=== PATIENT | female | born 1980 ===

== ENCOUNTER 2017-12-20 23:34 | Inpatient (IN) | payer MEDICAID ==
[2017-12-20 23:44] VITALS: O2SAT 98
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
[2017-12-21 04:18] LABS: BASO % 0.6 % (0.0-2.0); EOS # 0.1 K/uL (0.0-0.7); EOS % 1.1 % (0.0-4.0); LYMPH # 1.9 K/uL (1.0-4.3); LYMPH % 27.5 % (20.0-40.0); MEAN CELL VOLUME 92.4 fl (81.0-99.0); MEAN CORPUSCULAR HEMOGLOBIN 32.4 pg (27.0-31.0); MEAN CORPUSCULAR HGB CONC 35.1 g/dL (33.0-37.0); MEAN PLATELET VOLUME 6.5 fl (7.2-11.7); MONO # 0.5 K/uL (0.0-0.8); MONO % 6.6 % (0.0-10.0); NEUT # 4.5 K/uL (1.8-7.0); NEUT % 64.2 % (50.0-75.0); NRBC % 0.1 % (0.0-0.0); RBC 4.01 Mil/uL (3.80-5.20); RED CELL DISTRIBUTION WIDTH 13.7 % (11.5-14.5); WHITE BLOOD COUNT 7.1 K/uL (4.8-10.8)
[2017-12-21 04:28] LABS: ALB/GLOB RATIO 1.2 (1.0-2.1); ALBUMIN 3.9 g/dL (3.5-5.0); ALT/SGPT 23 U/L (9-52); AST/SGOT 27 U/L (14-36); BLOOD UREA NITROGEN 12 mg/dl (7-17); GFR AFRICAN-AMERICAN > 60; GFR NON-AFRICAN AMERICAN > 60
[2017-12-21] MEDS ORDERED: Magnesium Hydroxide Susp 30 ml UD PO PRN (04:40)
[2017-12-21] MEDS ORDERED: DiphenhydrAMINE 50 mg/ml Inj IM PRN (04:40)
--- NOTE | 2017-12-21 04:55 | PCM.BM ---
<Caryl Remy - Last Filed: 12/21/17 04:54> Treatment Plan Problems - Problems identified on initial assessmt Feelings of Worthlessness Date Initiated: 12/21/17 Time Initiated: 04:54 Assessment reference: NA Status: Active Treatment assets and liabiliti Patient Assests: ADL independent, negotiates basic needs Patient Liabilities: poor support system, relationship conflicts - Milieu Protocol Maintain good personal hygiene: daily Remind patient to perform daily oral care , daily Assist patient to perform ADL's, every shift Encourage regular showers Conduct patient checks and document Observation sheet: Q15 minutes Maintain personal safety: every shift Educate patient to report safety concerns to staff, every shift Monitor environment for contraband/sharps Medication safety: Monitor for expected outcome, potential side effects: every shift, Assess barriers to learning: every shift, Assess readiness for medication education: every shift <Karen Ruvalcaba - Last Filed: 12/23/17 16:24> Treatment assets and liabiliti Patient Assests: adapts well, cooperative, educated, resourceful, self-reliant, ADL independent, physically healthy, good support system, negotiates basic needs , cognitively intact Patient Liabilities: relationship conflicts Family Contact Family involvement: Family/SO is involved Family contact: Patient agrees to contact, Telephone contact initiated by staff Family contact name: Rosanna (mother) Family contacted how many times per week?: 2 Family contact comment: Senior Cost Estimator obtained consent on 12/23 and will contact patients family on 12/24 to discuss precursors to pts admission, progress on 3NP and aftercare. - Goals for Treatment Patient goals for treatment: Patient to continue stabilization on 3NP through medication management and group/supportive therapy. Patient to be encouraged to attend groups regularly to promote self-awareness, compliance, and improve insight, coping skills and self-esteem. Patient to be provided with referral for appropriate level of aftercare to reduce risk of future hospitalizations and ensure safety in the community. Discharge/Continuing Care - Education Needs Education Needs: Family Medication, Family Diagnosis/Disease Process, Family Coping Skills, Family Community resources, Family Aftercare Safety Plan, Patient Medication, Patient Diagnosis/Disease Process, Patient Coping Skills, Patient Anger Management skills, Patient Community resources, Patient Aftercare Safety Plan - Discharge Discharge Criteria: Tolerates medication w/o severe side effects, Free of Suicidal thoughts, Free of agitation, Normal sleep pattern, Ability to care for self, Reduction of target symptoms Discharge to:: Home, With Family, Other (OPS VS. PHP) - Treatment Team Participation Patient/Family/SO Statement: 12/23/17 16:27 Pt. attended tx team this morning. Pt. required significant engagement to participate in discussion regarding tx. Pt. AOX4 with flat affect and poor eye contact. Pt. tearful through-out interaction with repairer typewriter. Pt. somewhat untidy with fair ADLs. Thoughts clear and connected. Speech: low/soft. Pt. remains depressed, anxious and socially withdrawn. Insight limited. Coping skills/ Judgment impaired. Pt. perseverating on husbands whereabouts. Pt. socially withdrawn and isolative on 3NP. Validation and emotional support provided. Discussed with Family/SO: No Was Patient/Family/SO present at Treatment Team Meeting: Yes <Wilmer Luu - Last Filed: 12/24/17 18:05> - Diagnosis (1) Depression Status: Acute Interventions: psychotherapy pharmacotherapy 12/24/17 18:05
[2017-12-21 04:56] LABS: BARBITURATES, UR NEGATIVE (NEGATIVE); BENZODIAZEPINES, UR NEGATIVE (NEGATIVE); OPIATES, UR NEGATIVE (NEGATIVE); PHENCYCLIDINE, UR NEGATIVE (NEGATIVE)
--- NOTE | 2017-12-21 08:31 | RAD ---
HISTORY: admit COMPARISON: No prior. FINDINGS: LUNGS: No active pulmonary disease. PLEURA: No significant pleural effusion identified, no pneumothorax apparent. CARDIOVASCULAR: Normal. OSSEOUS STRUCTURES: No significant abnormalities. VISUALIZED UPPER ABDOMEN: Normal. OTHER FINDINGS: None. IMPRESSION: No acute cardiopulmonary disease appreciated.
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
[2017-12-21] MEDS ORDERED: Potassium Chloride 20 mEq ER Tab PO ONE (13:45)
[2017-12-21] MEDS ORDERED: Albuterol HFA 90 mcg/actuation (8 g) IH PRN (15:56)
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
[2017-12-22 06:40] LABS: T4 8.44 ug/dl (5.5-11.0)
[2017-12-22 06:59] LABS: BLOOD UREA NITROGEN 10 mg/dl (7-17); CALCIUM 9.3 mg/dL (8.4-10.2); GFR AFRICAN-AMERICAN > 60; GFR NON-AFRICAN AMERICAN > 60
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
--- NOTE | 2017-12-23 14:34 | PCM.PYCHPN ---
Psychiatric Progress Note - Psychiatric Progress Note Patient seen today, length of contact: pt evaluated discussed with team chart reviewed Patient Chief Complaint: I am still worried about my I do not have any news about him Problems Identified/Issues Discussed: pt evaluated with treatment team, continues to present with sad mood and tearful affect, continues to worry about her discussed with pt importance of concentrating on her treatment and feeling better pt reported improved sleep and appetite with the increase in neurontin no reported side effects, encouraged pt to attend groups and to be less isolative pt denied any current active suicidal plans or intent on the unit, denied perceptual disturbances Medical Problems: pt denied any previous hospitalizations or treatment DSM 5 Symptoms Update: major depression recurrent severe without psychotic features Medication Change: No Medical Record Reviewed: Yes Mental Status Examination - Cognitive Function Orientation: Person, Place, Situation, Time Attention: Poor Concentration: Poor Association: WNL Fund of Knowledge: WNL Decription of patient's judgement and insights: partial insight , poor judgment - Mood Mood: Depressed, Anxious - Affect Affect: Depressed - Speech Speech: Soft - Formal Thought Process Formal Thought Process: Circumstantial - Suicidal Ideation Suicidal Ideation: No - Homicidal Ideation Homicidal Ideation: No Goal/Treatment Plan - Goal/Treatment Plan Need for Continued Stay: Severe depression anxiety, Discharge may exacerbated symptoms Progress Toward Problem(s) and Goals/Treatment Plan: continue remeron 15mg qhs neurontin 100mg tid encourage pt to attend groups and participate in unit activities CBT , group and supportive therapy Estimated Date of D/C: 12/30/17
--- NOTE | 2017-12-24 18:15 | PCM.PYCHPN ---
Psychiatric Progress Note - Psychiatric Progress Note Patient seen today, length of contact: pt evaluated discussed with team chart reviewed Patient Chief Complaint: I still have hard time to sleep Problems Identified/Issues Discussed: pt evaluated discussed with team, treatment plan reviewed with mother upon pt request and consent pt reported continues to feel depressed, very worried about her ,and anxious about the fact that he might be in a hospital contin ued to discuss with pt the need to concentrate on her treatment and recovery, pt continues to be terful, stating she is unable to move beyond this point and would do anything to save her marriage reported poor sleep with early insomnia, and continues to have anhedonia and lack of interest in any activity discussed starting seroquel qhs, discontinuing remeron and startin zoloft , encouraged pt to attend groups and to be less isolative pt denied any current active suicidal plans or intent on the unit, denied perceptual disturbances Medical Problems: pt denied any previous hospitalizations or treatment DSM 5 Symptoms Update: major depression recurrent severe Medication Change: Yes (d/c remeron) Medical Record Reviewed: Yes Mental Status Examination - Cognitive Function Orientation: Person, Place, Situation, Time Attention: Poor Concentration: Poor Association: WNL Fund of Knowledge: WN Decription of patient's judgement and insights: partial insight , poor judgment - Mood Mood: Depressed, Anxious - Affect Affect: Depressed - Speech Speech: Soft - Formal Thought Process Formal Thought Process: Circumstantial - Suicidal Ideation Suicidal Ideation: No - Homicidal Ideation Homicidal Ideation: No Goal/Treatment Plan - Goal/Treatment Plan Need for Continued Stay: Severe depression anxiety, Discharge may exacerbated symptoms Progress Toward Problem(s) and Goals/Treatment Plan: discontinue remeron , start seroquel 100mg qhs, zoloft 25mg daily neurontin 100mg tid encourage pt to attend groups and participate in unit activities CBT , group and supportive therapy Estimated Date of D/C: 12/30/17
--- NOTE | 2017-12-25 15:25 | PCM.PYCHPN ---
Psychiatric Progress Note - Psychiatric Progress Note Patient seen today, length of contact: pt evaluated discussed with team chart reviewed Patient Chief Complaint: I am used to helping every body Problems Identified/Issues Discussed: pt on evaluation more groomed, less isolative and seen interacting with other patients , continues to report poor sleep with intermediate insomnia , continues to be tearful when discussing her relation problems, but appears to have more insight and able to verbalize some coping skills on discharge including getting more work and being more engaged with her friends pt encouraged to continue to attend groups, discussed with her the diagnosis of major depression pt was questioning diagnosis of bipolar, explained to her that irritability could be part of depression and pt denied any spending sprees or episodes of risk taking behavior no reported side effects of zoloft pt denied any current active suicidal plans or intent on the unit, denied perceptual disturbances Medical Problems: pt denied any previous hospitalizations or treatment DSM 5 Symptoms Update: major depression recurrent Medication Change: No (d/c remeron) Medical Record Reviewed: Yes Mental Status Examination - Cognitive Function Orientation: Person, Place, Situation, Time Attention: Poor Concentration: Poor Association: WNL Fund of Knowledge: WNL Decription of patient's judgement and insights: partial insight , poor judgment - Mood Mood: Depressed, Anxious - Affect Affect: Depressed - Speech Speech: Soft - Formal Thought Process Formal Thought Process: Circumstantial - Suicidal Ideation Suicidal Ideation: No - Homicidal Ideation Homicidal Ideation: No Goal/Treatment Plan - Goal/Treatment Plan Need for Continued Stay: Severe depression anxiety, Discharge may exacerbated symptoms Progress Toward Problem(s) and Goals/Treatment Plan: start seroquel 100mg qhs, zoloft 25mg daily with plan to uptitrate neurontin 100mg tid prn encourage pt to attend groups and participate in unit activities CBT , group and supportive therapy Estimated Date of D/C: 12/30/17
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
--- NOTE | 2017-12-27 17:29 | PCM.PYCHPN ---
Psychiatric Progress Note - Psychiatric Progress Note Patient seen today, length of contact: pt evaluated discussed with team chart reviewed Patient Chief Complaint: seen in milieu watching tv with select peers appears to be laughing at times reports that is some less depressed denies s/e sertraline. has been adherent with medication Problems Identified/Issues Discussed: alteration in mood alteration in coping Medical Problems: per chart Diagnostic Results: per psychiatry per medicine per nursing per rn social work DSM 5 Symptoms Update: somewhat less depression Medication Change: Yes (increase sertraline to 50mg po day) Medical Record Reviewed: Yes Consults ordered or reviewed: pt seen by hospitalist Mental Status Examination - Cognitive Function Orientation: Person, Place, Situation, Time Attention: Poor Concentration: Poor Association: WNL Fund of Knowledge: WNL - Mood Mood: Depressed, Anxious - Affect Affect: Depressed - Speech Speech: Soft - Formal Thought Process Formal Thought Process: Circumstantial - Suicidal Ideation Suicidal Ideation: No - Homicidal Ideation Homicidal Ideation: No Goal/Treatment Plan - Goal/Treatment Plan Need for Continued Stay: Severe depression anxiety, Discharge may exacerbated symptoms Progress Toward Problem(s) and Goals/Treatment Plan: inpt milieu adjust meds per status vital signs and clinical assessment per protocol and per status increase sertraline to 50mg po day starting 12/28/17, 25mg po x 1 dose stat discharge planning in progress ?anger management Estimated Date of D/C: 12/30/17 - Smoking Cessation Smoking Cessation Initiated: No
--- NOTE | 2017-12-28 15:29 | PCM.PYCHPN ---
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 her , discussed with pt that she is going through the stages of grieving including anger ,denial and that she needs intensive therapy on discharge pt stated dizziness related to the increase in seroquel, will lowed dose to 50 she also reported episodes of anxiety and possibel panic attack, will continue with neurontin as needed due to the history of alcohol use pt denied any current active suicidal plans or intent on the unit, denied perceptual disturbances Medical Problems: pt denied any previous hospitalizations or treatment DSM 5 Symptoms Update: major depression single episode Medication Change: No Medical Record Reviewed: Yes Mental Status Examination - Cognitive Function Orientation: Person, Place, Situation, Time Attention: Poor Concentration: Poor Association: WNL Fund of Knowledge: WNL - Mood Mood: Depressed, Anxious - Affect Affect: Depressed - Speech Speech: Soft - Formal Thought Process Formal Thought Process: Circumstantial - Suicidal Ideation Suicidal Ideation: No - Homicidal Ideation Homicidal Ideation: No Goal/Treatment Plan - Goal/Treatment Plan Need for Continued Stay: Severe depression anxiety, Discharge may exacerbated symptoms Progress Toward Problem(s) and Goals/Treatment Plan: decrease seroquel 50 mg qhs, zoloft 25mg daily with plan to uptitrate neurontin 100mg tid prn CBT , group and supportive therapy Estimated Date of D/C: 12/30/17
[2017-12-29] MEDS: Alum-Mag Hydrox-Simethicone Susp (30 mL) PO PRN ×2 (13:09→21:23)
--- NOTE | 2017-12-29 15:37 | PCM.PYCHPN ---
Psychiatric Progress Note - Psychiatric Progress Note Patient seen today, length of contact: pt evaluated discussed with team chart reviewed Patient Chief Complaint: I am feeling anxious about leaving Problems Identified/Issues Discussed: pt on evaluation , reported feeling anxious about discharge, mainly about returning to her home where she has all her memories with her discussed with pt possible coping skills with current anxiety, and the importance of continuing therapy on discharge pt reported headaches, possibly stress headaches pt denied any current active suicidal plans or intent on the unit, denied perceptual disturbances, no side effects of medications Medical Problems: pt denied any previous hospitalizations or treatment DSM 5 Symptoms Update: major depression Medication Change: No Medical Record Reviewed: Yes Mental Status Examination - Cognitive Function Orientation: Person, Place, Situation, Time Attention: Poor Concentration: Poor Association: WNL Fund of Knowledge: WNL - Mood Mood: Anxious, Neutral - Affect Affect: Constricted - Speech Speech: Appropriate - Formal Thought Process Formal Thought Process: Circumstantial - Suicidal Ideation Suicidal Ideation: No - Homicidal Ideation Homicidal Ideation: No Goal/Treatment Plan - Goal/Treatment Plan Need for Continued Stay: Severe depression anxiety, Discharge may exacerbated symptoms Progress Toward Problem(s) and Goals/Treatment Plan: seroquel 50 mg qhs, zoloft 25mg daily neurontin 100mg tid prn CBT , group and supportive therapy Estimated Date of D/C: 12/30/17
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
[2017-12-30 18:23] VITALS: BP 123/71; PULSE 82; RESP 18; TEMP 97.7
== END 2017-12-30 17:45 | disposition home or self-care (01) | DRG 430 ==
LOC: H.ER 23:34 → H.ERHOLD 12-21 03:25 → H.PSYCH 12-21 05:10
PROVIDERS: ADMIT Psychiatry & Neurology Psychiatry; ATTEND Psychiatry & Neurology Psychiatry
PROC: GZHZZZZ Group Psychotherapy (ICD-10-PCS; principal; 2017-12-21)
PROC: GZ58ZZZ Individual Psychotherapy, Cognitive-Behavioral (ICD-10-PCS; 2017-12-21)
DX: F32.2 Major depressive disorder, single episode, severe without psychotic features (principal); E87.6 Hypokalemia; F41.0 Panic disorder [episodic paroxysmal anxiety]; R45.851 Suicidal ideations; G47.00 Insomnia, unspecified; J45.909 Unspecified asthma, uncomplicated; Z87.440 Personal history of urinary (tract) infections; Z88.6 Allergy status to analgesic agent